=== PATIENT | female | born 1955 | race Caucasian/White ===

== ENCOUNTER 2016-12-30 07:36 | Day surgery (SDC) | payer MEDICARE ==
[~2016-12-30] VITALS: Ht 160 cm; Wt 75.8 kg
[~2016-12-30 07:36] MED LIST: ALBU0.086 NEB; ALBU8I INH; ASPI81TA11 PO; ATOR80TA41 PO; AUGM875T PO; B-COTAB41 PO; HYDR-2768 PO; HYDR-3533 PO; ISOS30TA3 PO; METO25 PO; NITR.4 SL; PROT40TA PO; SERT25TA83 PO; TAB-TAB PO
[2016-12-30] MEDS ORDERED: NS 1000P @30 MLS/HR (KVO) IV SCH (08:00)
[2016-12-30 08:13] VITALS: BP 177/88; PULSE 62; RESP 17; TEMP 97.5; O2SAT 99
[2016-12-30] MEDS ORDERED: EZET1TAB8 PO (08:26)
[2016-12-30] MEDS ORDERED: ASPI81TA81 PO (08:26)
[2016-12-30] MEDS ORDERED: HYDR-3516 PO (08:26)
[2016-12-30] MEDS ORDERED: UMEC1AER INH (08:26)
[2016-12-30] MEDS ORDERED: FLUT1INH3 INH (08:26)
[2016-12-30] MEDS ORDERED: LOSA50TA PO (08:26)
[2016-12-30] MEDS ORDERED: NITR0.4S SL (08:26)
[2016-12-30] MEDS ORDERED: CLOP75TA PO (08:26)
[2016-12-30] MEDS ORDERED: PANT40TA3 PO (08:26)
[2016-12-30] MEDS ORDERED: ALBU0.08 NEB (08:26)
[2016-12-30] MEDS ORDERED: VENTAER INH (08:26)
[2016-12-30] MEDS ORDERED: METO25TA3 PO (08:26)
[2016-12-30] MEDS ORDERED: MULT1TAB84 PO (08:26)
[2016-12-30] MEDS ORDERED: VITATAB11 PO (08:26)
[2016-12-30] MEDS ORDERED: ISOS120T PO (08:26)
[2016-12-30] MEDS ORDERED: ATOR1TAB18 PO (08:26)
[2016-12-30] MEDS ORDERED: RANO500 PO ×2 (08:26→10:13)
[2016-12-30] MEDS ORDERED: AMLO5TAB2 PO (08:26)
[2016-12-30] MEDS ORDERED: SERT-129 PO (08:26)
[2016-12-30] MEDS ORDERED: HYDR25TA5 PO (08:26)
[2016-12-30] MEDS ORDERED: NIAC400C PO (08:26)
[2016-12-30] MEDS ORDERED: IOHEXOL 350 MG/ML 50 ML BTL (for Cath Lab) OTHER ONE (09:26)
[2016-12-30] MEDS ORDERED: HEPARIN-NS/PF INJ 500 ML ONE (09:28)
[2016-12-30] MEDS ORDERED: MIDAZOLAM HCL 2 MG/2 ML VIAL ONE (09:28)
[2016-12-30] MEDS ORDERED: hydrALAZINE HCL 20 MG/ML VIAL ONE (10:07)
[2016-12-30] MEDS ORDERED: ONDANSETRON HCL 4 MG/2 ML VIAL IV PRN (10:15)
[2016-12-30] MEDS ORDERED: ATROPINE SULFATE 1 MG/ML VIAL IV PRN (10:15)
[2016-12-30] MEDS ORDERED: METOCLOPRAMIDE HCL 10 MG/2 ML VIAL IV PRN (10:15)
[2016-12-30] MEDS ORDERED: BACITRACIN OINT 0.9 GM PKT TOP ONE (10:15)
[2016-12-30] MEDS ORDERED: MISC INFORMATION XX ONE (10:15)
[2016-12-30] MEDS ORDERED: LORazepam 2 MG/ML VIAL IV PRN (10:15)
[2016-12-30] MEDS ORDERED: oxyCODONE/ACETAMINOPHEN 5 MG/325 MG TAB PO PRN ×2 (10:15)
[2016-12-30] MEDS ORDERED: LIDOCAINE HCL 1% 50 ML VIAL INFIL PRN (10:15)
[2016-12-30] MEDS ORDERED: SODIUM CHLOR 0.9% 250 ML INJ 250 ML IV PRN (10:15)
--- NOTE | 2016-12-30 11:02 | MA ---
cc: RONAL CONNER DATE: 12/30/2016 PROCEDURE PERFORMED 1. Fluoroscopy with interpretation. 2. Coronary angiography. METHOD: Risks, benefits and alternatives discussed with the patient. The patient understood and consented to the procedure. The patient brought the catheterization lab and placed on the catheterization table. Right groin was prepped and draped in sterile fashion. Right groin was anesthetized 2% lidocaine, the right common femoral artery is cannulated, 5-Mongolian 11 cm sheath was placed without difficulty. CORONARY ANGIOGRAPHY: 1. Left main coronary minor luminal irregularities. 2. Left anterior descending coronary has a stent present in the proximal segment, some mild in-stent restenosis, estimated 20-30%. There is a steep angulation takeoff of the proximal left anterior descending coronary. But it does not appear to be obstructed. There is also a stent present in the mid segment that was placed in 2013 that the stents widely patent. A distal left anterior descending coronary smaller caliber size has minor luminal irregularities. There is a diagonal branch that originates off the side of the mid stent which also has some mild disease proximally. 3. Left circumflex gives rise to first obtuse marginal branch. There is extensive stents throughout the length of the proximal mid circumflex in addition to the mid segment of the first obtuse marginal branch. There is minor luminal irregularities throughout. 4. The right coronary is occluded proximally and there is both right to right and [id number]-[id number] collaterals. This is present on prior angiogram 2013. CONCLUSIONS 1. Single-vessel coronary disease involving a chronically occluded right coronary artery which is collateralize 2. Widely patent left anterior descending and left circumflex coronary stents. 3. Small vessel disease. PLAN There appears to be a no high-grade obstruction. She is already on isosorbide 120 mg a day. We will add Ranexa twice a day to see if that has any impact on her symptoms. Additionally she may need further investigation for noncardiac causes if she has continued symptoms. MD ROCIO Mendoza/dahlia /10:19 AM /10:56 AM
[2016-12-30] MEDS ORDERED: MORPHINE SULFATE 4 MG/ML INJ IV PUSH PRN (12:00)
== END 2016-12-30 16:44 | disposition home or self-care (01) ==
LOC: HDIC 07:36 → HCAT 07:36
PROVIDERS: ATTEND Internal Medicine
DX: I25.10 Atherosclerotic heart disease of native coronary artery without angina pectoris (principal); Z95.5 Presence of coronary angioplasty implant and graft; I73.9 Peripheral vascular disease, unspecified
CPT/HCPCS: 86850; 86900; 86901; 93458; C1769; C1893; J0360; J1644; J2250; J2405; J3010; Q9967

== ENCOUNTER → 2017-02-17 | Day surgery (SDC) | payer MEDICARE ==
[~2017-02-17] MED LIST changes: +ALBU0.08 NEB; -ALBU0.086 NEB; -ALBU8I INH; +AMLO5TAB2 PO; -ASPI81TA11 PO; +ASPI81TA81 PO; +ATOR1TAB18 PO; -ATOR80TA41 PO; -AUGM875T PO; -B-COTAB41 PO; +CLOP75TA PO; +EZET1TAB8 PO; +FLUT1INH3 INH; -HYDR-2768 PO; +HYDR-3516 PO; -HYDR-3533 PO; +HYDR25TA5 PO; +ISOS120T PO; -ISOS30TA3 PO; +LACTATED RINGER'S 1,000 ML BAG IV ONE; +LACTATED RINGER'S 1000 ML INJ 1,000 ML ONE; +LOSA50TA PO; -METO25 PO; +METO25TA3 PO; +MULT1TAB84 PO; +NIAC400C PO; -NITR.4 SL; +NITR0.4S SL; +PANT40TA3 PO; +PROPOFOL 200 MG/20 ML AMP IV ONE; -PROT40TA PO; +RANO500 PO; +SERT-129 PO; -SERT25TA83 PO; -TAB-TAB PO; +UMEC1AER INH; +VENTAER INH; +VITATAB11 PO
--- NOTE | 2017-02-17 12:59 | GIPROC ---
[facility] [address] [facility], [id number] COLONOSCOPY PROCEDURE REPORT EXAM DATE: 02/17/2017 PATIENT NAME: Meghann Garvin MR #: [id number] BIRTHDATE: 1955 ENDOSCOPIST: Guido Peters MD ORDER #: [id number] INTERNAL MEDICINE NURSE PRACTITIONER: Elvira Naranjo RN STATUS: outpatient INDICATIONS: The patient is a 61 yr old female here for a colonoscopy due to high risk patient with personal history of colonic polyps PROCEDURE PERFORMED: Colonoscopy with biopsy MEDICATIONS: None and Per Anesthesia. PREP QUALITY: excellent ESTIMATED BLOOD LOSS: None CONSENT: The patient understands the risks and benefits of the procedure and understands that these risks include, but are not limited to: sedation, allergic reaction, infection, perforation and/or bleeding. Alternative means of evaluation and treatment include, among others: physical exam, x-rays, and/or surgical intervention. The patient elects to proceed with this endoscopic procedure. medical equipment was checked for proper function. Hand hygiene and appropriate measures for infection prevention was taken. After the risks, benefits and alternatives of the procedure were thoroughly explained, Informed consent was verified, confirmed and timeout was successfully executed by the treatment team. A digital exam revealed no abnormalities of the rectum The EC-3890Li ([id number]) endoscope was introduced through the anus and advanced to the cecum, which was identified by both the appendix and ileocecal valve. The instrument was then slowly withdrawn as the colon was fully examined. COLON FINDINGS: A diminutive smooth sessile polyp was found in the sigmoid colon. A polypectomy was performed with cold forceps. The resection was complete and the polyp tissue was completely retrieved. Severe diverticulosis was noted in the sigmoid colon. The colon mucosa was otherwise normal. Retroflexed views revealed no abnormalities The scope was then completely withdrawn from the patient and the procedure terminated. PROCEDURE WITHDRAWAL TIME:9.6minutes ADVERSE EVENTS: There were no complications. IMPRESSIONS: 1. A diminutive sessile polyp was found in the sigmoid colon; polypectomy was performed with cold forceps 2. Severe diverticulosis was noted in the sigmoid colon 3. The colon mucosa was otherwise normal 4. Retroflexed views revealed no abnormalities 5. Revealed no abnormalities of the rectum RECOMMENDATIONS: 1. Await biopsy results. Biopsy results will not be ready for 7-10 days. If you don't hear from us in two weeks, call our office for results. 2. High fiber diet. Avoid nuts, seeds, and popcorn. Chew your food well. 3. Follow-up: GI Clinic PRN 4. Yearly hemoccult RECALL: Return 5 years Colonoscopy Guido Peters MD eSigned: Guido Peters MD 02/17/2017 12:59 PM cc: Desmond Au M.D and Britni Kelley [facility]
--- NOTE | 2017-02-17 13:03 | GIPROC ---
[facility] [address] [facility], [address] EGD PROCEDURE REPORT EXAM DATE: 02/17/2017 PATIENT NAME: Meghann Garvin MR #: [id number] BIRTHDATE: 1955 ATTENDING: Guido Peters MD ORDER #: [id number] DIRECTOR DIGITAL MARKETING: Elvira Naranjo RN STATUS: outpatient INDICATIONS: The patient is a 61 yr old female here for an EGD due to dyspepsia and dysphagia PROCEDURE PERFORMED: EGD w/ biopsy MEDICATIONS: None, Per Anesthesia, None, and Per Anesthesia. TOPICAL ANESTHETIC: CONSENT: The patient understands the risks and benefits of the procedure and understands that these risks include, but are not limited to: sedation, allergic reaction, infection, perforation and/or bleeding. Alternative means of evaluation and treatment include, among others: physical exam, x-rays, and/or surgical intervention. The patient elects to proceed with this endoscopic procedure. medical equipment was checked for proper function. Hand hygiene and appropriate measures for infection prevention was taken. After the risks, benefits and alternatives of the procedure were thoroughly explained, Informed consent was verified, confirmed and timeout was successfully executed by the treatment team. The patient was anesthetized with topical anesthesia and the EC-3890Li ([id number]) endoscope was introduced through the mouth and advanced to the second portion of the duodenum. Retroflexed views revealed no abnormalities The gastroscope was then slowly withdrawn and removed. ESOPHAGUS: The mucosa of the esophagus appeared normal. Multiple biopsies were performed. The endoscopy was otherwise normal. STOMACH: There was mild gastritis in the gastric antrum. Multiple biopsies were performed. ADVERSE EVENTS: There were no complications. IMPRESSIONS: 1. The esophagus appeared normal; multiple biopsies were performed 2. Normal endoscopy otherwise 3. There was mild gastritis in the gastric antrum; multiple biopsies were performed 4. Retroflexed views revealed no abnormalities RECOMMENDATIONS: 1. Await biopsy results. Biopsy results will not be ready for 7-10 days. If you don't hear from us in two weeks, call our office for biopsy results. 2. Follow-up: GI clinic 4 week(s) PATIENT CONDITION: stable DISPOSITION: Home REPEAT EXAM: Guido Peters MD eSigned: Guido Peters MD 02/17/2017 1:03 PM cc: Desmond Kelley [facility]
== END | disposition home or self-care (01) ==
LOC: ESDC 10:42
PROVIDERS: ATTEND Internal Medicine Gastroenterology
DX: Z86.010 Personal history of colon polyps (principal); D12.5 Benign neoplasm of sigmoid colon; K57.90 Diverticulosis of intestine, part unspecified, without perforation or abscess without bleeding; R13.10 Dysphagia, unspecified; R10.13 Epigastric pain; K29.70 Gastritis, unspecified, without bleeding
CPT/HCPCS: 00740; 00810; 43239; 45380; 88305; J3010; J7120

== ENCOUNTER 2018-02-13 07:34 | Day surgery (SDC) | payer MEDICARE ==
[2018-02-13] MEDS ORDERED: IOHEXOL 350 MG/ML 50 ML BTL (for Cath Lab) OTHER (07:35)
[2018-02-13] MEDS ORDERED: IOHEXOL 350 MG/ML 100 ML BTL (for Cath Lab) OTHER (07:35)
[2018-02-13] MEDS: HEPARIN-NS/PF FLUSH BAG 2,000 ML IV FLUSH (09:14)
[2018-02-13] MEDS: MIDAZOLAM HCL 2 MG/2 ML VIAL (09:32)
[2018-02-13] MEDS: hydrALAZINE HCL 20 MG/ML VIAL (09:38)
[2018-02-13] MEDS: BIVALIRUDIN 250 MG VIAL (09:54)
[2018-02-13] MEDS: NITROGLYCERIN 400 MCG/SPRAY 4.9 GM BOTTLE SL (10:08)
[2018-02-13] MEDS ORDERED: LIDOCAINE 2% JELLY 30 ML TUBE TOP (10:45)
[2018-02-13] MEDS ORDERED: oxyCODONE/ACETAMINOPHEN 5 MG/325 MG TAB PO (10:45)
[2018-02-13] MEDS ORDERED: ONDANSETRON HCL 4 MG/2 ML VIAL IVP (10:45)
[2018-02-13] MEDS ORDERED: ACETAMINOPHEN 325 MG TAB PO (10:45)
[2018-02-13] MEDS: MISC INFORMATION XX (10:45)
[2018-02-13] MEDS ORDERED: hydrALAZINE HCL 50 MG TAB PO (11:00)
[2018-02-13] MEDS: SODIUM CHLOR 0.9% 1000 ML INJ 1,000 ML IV (12:09)
[2018-02-13] MEDS: BACITRACIN OINT 0.9 GM PKT TOP (12:09)
[2018-02-13] MEDS ORDERED: BIVALIRUDIN INJ 250 MG in SODIUM CHLORIDE 0.9% INJ 50 ML IV (13:00)
[2018-02-13] MEDS: RANOLAZINE 500 MG EXTENDED RELEASE TAB PO (20:50)
[2018-02-13] MEDS: METOPROLOL TARTRATE 50 MG TAB PO (20:50)
[2018-02-13] MEDS ORDERED: TEMAZEPAM 15 MG CAP PO (21:00)
[2018-02-13] MEDS ORDERED: FLUTICASONE SALMETEROL INH (21:00)
[2018-02-13] MEDS ORDERED: [UNRECOGNIZED DRUG - OTHER] INH (21:00)
[2018-02-14] MEDS: ISOSORBIDE MONONITRATE 60 MG CR TAB (IMDUR) PO (06:09)
[2018-02-14 06:37] LABS: AUTOMATED NEUTROPHIL # 4.1 TH/MM3 (1.8-7.7); BASOPHIL % 0.6 % (0.0-2.0); EOSINOPHIL # 0.1 TH/MM3 (0-0.4); EOSINOPHIL % 1.1 % (0.0-4.0); HEMATOCRIT 35.8 % (35.0-46.0); HEMO FLAGS DIFF FINAL; HEMOGLOBIN 12.1 GM/DL (11.6-15.3); LYMPH % 28.2 % (9.0-44.0); LYMPHOCYTE # 1.8 TH/MM3 (1.0-4.8); MEAN CELL VOLUME 85.6 FL (80.0-100.0); MEAN CORPUSCULAR HGB CONC 33.8 % (32.0-36.0); MONO % 7.2 % (0.0-8.0); MONOCYTE # 0.5 TH/MM3 (0-0.9); NEUT % 62.9 % (16.0-70.0); PLATELET COUNT 159 TH/MM3 (150-450); RED BLOOD COUNT 4.18 MIL/MM3 (4.00-5.30); RED CELL DISTRIBUTION WIDTH 14.2 % (11.6-17.2); WHITE BLOOD COUNT 6.5 TH/MM3 (4.0-11.0)
[2018-02-14 06:54] LABS: ANION GAP 8 MEQ/L (5-15); BICARBONATE 26.1 MEQ/L (21.0-32.0); BLOOD UREA NITROGEN 23 MG/DL (7-18); CALCIUM 9.1 MG/DL (8.5-10.1); CHLORIDE 109 MEQ/L (98-107); CREATININE 1.15 MG/DL (0.50-1.00); GLOMERULAR FILTRATION RATE 48 ML/MIN (>89); GLUCOSE,RANDOM 89 MG/DL (74-106); SODIUM (NA) 143 MEQ/L (136-145)
[2018-02-14 06:55] LABS: CHOLESTEROL 308 MG/DL (120-200); TRIGLYCERIDES 200 MG/DL (42-150)
[2018-02-14 06:59] LABS: LDL CHOLESTEROL 224 MG/DL (0-99)
[2018-02-14 07:01] LABS: CREATINE KINASE 47 U/L (26-192)
[2018-02-14] MEDS: RANOLAZINE 500 MG EXTENDED RELEASE TAB PO (09:11)
[2018-02-14] MEDS: CHOLECALCIFEROL (VIT D3) 1000 UNIT TAB PO (09:11)
[2018-02-14] MEDS: NIACIN 500 MG EXTENDED RELEASE TAB PO (09:11)
[2018-02-14] MEDS: VITAMIN B COMPLEX/VIT C TAB PO (09:12)
[2018-02-14] MEDS: PANTOPRAZOLE SOD 40 MG DELAYED RELEASE TAB PO (09:12)
[2018-02-14] MEDS: CLOPIDOGREL 75 MG TAB PO (09:12)
[2018-02-14] MEDS: ASPIRIN 81 MG CHEW TAB PO (09:12)
[2018-02-14] MEDS: LOSARTAN 50 MG TAB PO (09:12)
[2018-02-14] MEDS: SERTRALINE HCL 100 MG TAB PO (09:22)
== END 2018-02-14 10:55 | disposition home or self-care (01) ==
LOC: HDOC 07:34 → HDIC 07:35 → HCIS 13:20
DX: I25.110 Atherosclerotic heart disease of native coronary artery with unstable angina pectoris (principal); I10 Essential (primary) hypertension; I25.2 Old myocardial infarction; G47.30 Sleep apnea, unspecified; J44.9 Chronic obstructive pulmonary disease, unspecified
CPT/HCPCS: 80048; 80061; 82550; 85025; 86850; 86900; 86901; 92928; 93454; 99152; 99153